=== PATIENT | male | born 1985 | race African-American/Black ===

== ENCOUNTER 2022-03-18 16:57 | Emergency (ER) | payer MEDICAID ==
[~2022-03-18] VITALS: Ht 170.2 cm; Wt 62.0 kg
[2022-03-18 17:06] VITALS: BP 118/79
== END 2022-03-19 03:00 | disposition left against medical advice (07) ==
LOC: ER 16:57
DX: Z53.21 Procedure and treatment not carried out due to patient leaving prior to being seen by health care provider (principal)